=== PATIENT | female | born 1985 | race Caucasian/White ===

== ENCOUNTER 2023-12-26 10:08 | Outpatient (REF) | payer BC, SELFPAY ==
[2023-12-26 14:07] LABS: MANUAL DIFF FLAG NO
[2023-12-26 14:16] LABS: Basophils Percent Auto 0.5 % (0-2); Eosinophils Absolute Auto 0.1 X10*3/uL (0.0-0.4); Eosinophils Percent Auto 1.3 % (0-4); Hemoglobin 12.9 g/dl (12.0-16.0); Imm Gran Abs Auto 0.04 X10*3/uL (0.00-0.03); Imm Gran Pct Auto 0.5 % (0.0-0.4); Lymphocytes Absolute Auto 2.3 X10*3/uL (1.2-4.9); Lymphocytes Percent Auto 29.5 % (20-40); Mean Corpuscular HGB Conc 32.3 g/dl (31.0-35.0); Mean Corpuscular Hemoglobin 28.4 pg (27.0-33.0); Mean Corpuscular Volume 87.9 fL (80.0-98.0); Mean Platelet Volume 10.2 fL (9.4-12.3); Monocytes Absolute Auto 0.5 X10*3/uL (0.1-1.2); Monocytes Percent Auto 6.7 % (2-11); Neutrophils Absolute Auto 4.8 x10*3/uL (2.0-8.3); Neutrophils Percent Auto 61.5 % (45-73); Platelet Count 354 X10*3/uL (160-400); Red Blood Count 4.55 X10*6/uL (4.20-5.50); Red Cell Distribution Width 13.2 % (11.0-16.0); White Blood Count 7.7 X10*3/uL (4.8-10.8)
[2023-12-26 14:39] LABS: Alanine Aminotransferase 19 U/L (0-31); Albumin Level 4.3 g/dL (3.5-5.0); Alkaline Phosphatase 53 U/L (39-117); Anion Gap 14 (12-20); Aspartate Amino Transferase 24 U/L (5-31); Bilirubin Total 0.6 mg/dL (0.0-1.0); Blood Urea Nitrogen 8 mg/dL (9-16); Calcium 9.5 mg/dL (8.4-10.2); Carbon Dioxide 22 mmol/L (22-29); Chloride 105 mmol/L (96-108); Cholesterol 191 mg/dL (<200); Estimated Glomerular Filt Rate > 60; Glucose Random 86 mg/dL (60-115); HDL Cholesterol 38 mg/dL (>40); LDL Cholesterol Calculated 121 mg/dL (<100); Potassium 4.7 mmol/L (3.3-5.1); Sodium 136 mmol/L (135-145); Total Protein 8.9 g/dL (6.5-8.0); Triglycerides 161 mg/dL (<150)
[2023-12-26 14:46] LABS: Creatinine Urine 37.58 mg/dL; Microalbum/Creatinine Ratio Ur 234.1 ug/mg cr (<30)
[2023-12-26 14:52] LABS: Insulin 8 uU/mL (2-29); TSH reflex Free T4 1.36 uIU/mL (0.32-4.0)
[2023-12-27 08:49] LABS: DHEA Sulfate 96 mcg/dL (19-237); Follicle Stimulating Hormone 2.8 mIU/mL; Prolactin 9.1 ng/mL
[2023-12-30 21:53] LABS: Anti-Mullerian Hormone-Female 1.84 ng/mL (0.18-5.68)
[2024-01-01 14:03] LABS: Testosterone, Free 2.5 pg/mL (0.1-6.4); Testosterone, Total 27 ng/dL (2-45)
[2024-01-05 18:28] LABS: Estradiol Ultra Sensitive 112 pg/mL
== END 2023-12-26 10:09 | disposition home or self-care (01) ==
LOC: HO.CHCLDS 10:08
PROVIDERS: Visit Provider Family Medicine
DX: N93.9 Abnormal uterine and vaginal bleeding, unspecified (principal); E66.01 Morbid (severe) obesity due to excess calories; Z68.38 Body mass index [BMI] 38.0-38.9, adult; R03.0 Elevated blood-pressure reading, without diagnosis of hypertension
CPT/HCPCS: 36415; 80053; 80061; 82043; 82166; 82570; 82627; 82670; 83001; 83525; 84146; 84402; 84403; 84443; 85025